=== PATIENT | female | born 1950 | race Caucasian/White ===

== ENCOUNTER 2016-10-29 09:32 | Day surgery (SDC) | payer OTHER, BC ==
[2016-10-29] MEDS ORDERED: NS 500 ML IV 500 ML IV ONE (09:48)
[2016-10-29] MEDS ORDERED: TETRACAINE 0.5% OPHTH 1 DOSE AFFEYE ONE ×4 (10:00→13:32)
[2016-10-29] MEDS ORDERED: VIGAMOX 0.5% OPHTH 1 DOSE AFFEYE ONE ×5 (10:05→13:58)
[2016-10-29] MEDS ORDERED: PROLENSA OPHTH 1 DOSE AFFEYE ONE (10:16)
[2016-10-29] MEDS ORDERED: ALPHAGAN-P OPHTH 1 DOSE AFFEYE ONE (10:17)
[2016-10-29] MEDS ORDERED: MYDRIACIL OPHTH 1 DOSE AFFEYE ONE ×3 (10:18→10:20)
[2016-10-29] MEDS ORDERED: AK-DILATE 2.5% OPHTH 1 DOSE OP ONE ×3 (10:18→10:20)
[2016-10-29] MEDS ORDERED: CYCLOGYL 1% OPHTH 1 DOSE OP ONE ×3 (10:18→10:20)
[2016-10-29] MEDS: VERSED ONE ×2 (13:14→13:16)
[2016-10-29] MEDS ORDERED: AK-DILATE 10% OPHTH 1 DOSE AFFEYE ONE (13:20)
[2016-10-29] MEDS ORDERED: BETADINE OPHTH SOLN 5% EACHEYE ONE (13:32)
[2016-10-29] MEDS ORDERED: BSS OPHTH (PLAIN) 500 ML with VANCOMYCIN HCL 500 MG VIAL 25 MG, ADRENALINE CHL INJ 1 MG IR ONE ×3 (13:40)
[2016-10-29] MEDS ORDERED: ADRENALINE CHL INJ IJ ONE (13:40)
[2016-10-29] MEDS ORDERED: XYLOCAINE-MPF 1% IJ ONE (13:40)
[2016-10-29] MEDS ORDERED: DUOVISC IO ONE (13:40)
[2016-10-29] MEDS ORDERED: VISCOAT 0.5 ML IO ONE (13:47)
[2016-10-29 14:32] VITALS: BP 124/62
== END 2016-10-29 14:25 | disposition home or self-care (01) ==
LOC: SURG1 09:32
PROVIDERS: ATTEND Ophthalmology
PROC: 08RJ3JZ Replacement of Right Lens with Synthetic Substitute, Percutaneous Approach (ICD-10-PCS; principal; 2016-10-29 13:30)
PROC: 08DJ3ZZ Extraction of Right Lens, Percutaneous Approach (ICD-10-PCS; principal; 2016-10-29 13:30)
PROC: 08J0XZZ Inspection of Right Eye, External Approach (ICD-10-PCS; principal; 2016-10-29 13:30)
DX: H25.11 Age-related nuclear cataract, right eye (principal); H25.011 Cortical age-related cataract, right eye; H25.041 Posterior subcapsular polar age-related cataract, right eye; H52.221 Regular astigmatism, right eye
CPT/HCPCS: A4217; J0170; J2250; J3370

== ENCOUNTER 2016-12-03 07:12 | Day surgery (SDC) | payer OTHER, BC ==
[2016-12-03] MEDS ORDERED: NS 500 ML IV 500 ML IV ONE (07:22)
[2016-12-03] MEDS ORDERED: TETRACAINE 0.5% OPHTH 1 DOSE AFFEYE ONE ×5 (07:30→09:35)
[2016-12-03] MEDS ORDERED: VIGAMOX 0.5% OPHTH 1 DOSE AFFEYE ONE ×4 (07:31→09:41)
[2016-12-03] MEDS ORDERED: PROLENSA OPHTH 1 DOSE AFFEYE ONE (07:43)
[2016-12-03] MEDS ORDERED: ALPHAGAN-P OPHTH 1 DOSE AFFEYE ONE (07:44)
[2016-12-03] MEDS ORDERED: CYCLOGYL 1% OPHTH 1 DOSE OP ONE ×3 (07:45→07:49)
[2016-12-03] MEDS ORDERED: MYDRIACIL OPHTH 1 DOSE AFFEYE ONE ×3 (07:45→07:49)
[2016-12-03] MEDS ORDERED: AK-DILATE 2.5% OPHTH 1 DOSE OP ONE ×3 (07:45→07:49)
[2016-12-03] MEDS ORDERED: VERSED ONE (07:57)
[2016-12-03] MEDS ORDERED: ALCAINE or OPHTHETIC AFFEYE ONE (09:14)
[2016-12-03] MEDS ORDERED: VERSED IVP ONE (09:20)
[2016-12-03] MEDS ORDERED: ALCAINE or OPHTHETIC 1 DOSE AFFEYE ONE (09:21)
[2016-12-03] MEDS ORDERED: AK-DILATE 10% OPHTH 1 DOSE AFFEYE ONE (09:24)
[2016-12-03] MEDS ORDERED: BETADINE OPHTH SOLN 5% EACHEYE ONE (09:31)
[2016-12-03] MEDS ORDERED: DUOVISC IO ONE (09:36)
[2016-12-03] MEDS ORDERED: ADRENALINE CHL INJ IJ ONE (09:36)
[2016-12-03] MEDS ORDERED: XYLOCAINE-MPF 1% IJ ONE (09:36)
[2016-12-03] MEDS ORDERED: BSS OPHTH (PLAIN) 500 ML with VANCOMYCIN HCL 500 MG VIAL 25 MG, ADRENALINE CHL INJ 1 MG IR ONE ×3 (09:41)
[2016-12-03 10:23] VITALS: BP 151/86
== END 2016-12-03 10:15 | disposition home or self-care (01) ==
LOC: SURG1 07:12
PROVIDERS: ATTEND Ophthalmology
PROC: 08RJ3JZ Replacement of Right Lens with Synthetic Substitute, Percutaneous Approach (ICD-10-PCS; principal; 2016-12-03 09:00)
PROC: 08DJ3ZZ Extraction of Right Lens, Percutaneous Approach (ICD-10-PCS; principal; 2016-12-03 09:00)
DX: H25.11 Age-related nuclear cataract, right eye (principal); H25.011 Cortical age-related cataract, right eye; H52.221 Regular astigmatism, right eye
CPT/HCPCS: A4217; J0170; J2250; J3370